=== PATIENT | female | born 1945 | race Caucasian/White ===

== ENCOUNTER 2017-12-06 08:04 | Inpatient (IN) | payer MEDICARE, OTHER ==
[2017-12-04 17:22] LABS: ADD MAN DIFF? NO
[2017-12-04 17:33] LABS: WHITE BLOOD COUNT 9.4 10^3/ul (4.8-10.8)
[2017-12-04 17:33] LABS: BASOPHILS % 0.1 % (0.0-2.0); EOSINOPHILS # 0.1 10^3/ul (0.0-0.5); EOSINOPHILS % 1.2 % (0.0-7.0); HEMATOCRIT 37.7 % (37.0-47.0); HEMOGLOBIN 12.6 g/dl (12.0-16.0); LYMPHOCYTES # 1.9 10^3/ul (0.8-2.9); LYMPHOCYTES % 20.1 % (15.0-51.0); MEAN CORPUSCULAR HEMOGLOBIN 33.2 pg (29.0-33.0); MEAN CORPUSCULAR HGB CONC 33.4 g/dl (32.0-37.0); MEAN CORPUSCULAR VOLUME 99.5 fl (82.0-101.0); MEAN PLATELET VOLUME 9.3 fl (7.4-10.4); MONOCYTE # 0.6 10^3/ul (0.3-0.9); MONOCYTES % 6.1 % (0.0-11.0); NEUTROPHIL # 6.7 10^3/ul (1.6-7.5); NEUTROPHILS % 72.1 % (39.0-77.0); PLATELET COUNT 286 10^3/UL (140-415); RED BLOOD COUNT 3.79 10^6/ul (4.20-5.40); RED CELL DISTRIBUTION WIDTH 12.1 % (11.5-14.5)
[2017-12-04 17:43] LABS: ADD UMIC YES; UR ASCORBIC ACID NEGATIVE (NEGATIVE); UR BILIRUBIN (Dip) NEGATIVE (NEGATIVE); UR BLOOD (Dip) NEGATIVE (NEGATIVE); UR CLARITY CLEAR (CLEAR); UR COLOR YELLOW (YELLOW); UR GLUCOSE (Dip) NEGATIVE (NEGATIVE); UR KETONES (Dip) NEGATIVE (NEGATIVE); UR LEUKOCYTE ESTERASE (Dip) TRACE Leu/ul (NEGATIVE); UR MUCUS FEW /HPF (NONE SEEN); UR NITRITE (Dip) NEGATIVE (NEGATIVE); UR RBC 1 /HPF (0-5); UR SPECIFIC GRAVITY (Dip) 1.017 (1.003-1.030); UR TOTAL PROTEIN (Dip) NEGATIVE (NEGATIVE); UR UROBILINOGEN (Dip) NEGATIVE (NEGATIVE); UR WBC 5 /HPF (0-5)
[2017-12-04 18:07] LABS: INR 1.08; PARTIAL THROMBOPLASTIN TIME 28.8 Sec (25.0-35.0); PROTIME 14.1 Sec (11.9-14.9); PT RATIO 1.1
[2017-12-04 18:20] LABS: ANION GAP 13 (8-16); BLOOD UREA NITROGEN 14 mg/dl (7-20); CARBON DIOXIDE 27 mmol/L (21-31); CHLORIDE 108 mmol/L (97-110); GLUCOSE 105 mg/dl (70-220); POTASSIUM 4.2 mmol/L (3.5-5.1); SODIUM 144 mmol/L (135-144)
[~2017-12-06 08:04] MED LIST: SOD CHLORIDE 0.9% 100 ML, TRANEXAMIC ACID 3,000 MG IRR
[2017-12-06] MEDS: GABAPENTIN 300 MG CAP PO ×2 (09:09→20:44)
[2017-12-06] MEDS: DEXAMETHASONE 1 MG TAB PO (09:09)
[2017-12-06] MEDS: traMADol 50 MG TAB PO (09:10)
[2017-12-06] MEDS ORDERED: POLYMYXIN/BACITRACIN 1L IRRIG (10:16)
[2017-12-06] MEDS ORDERED: MIDAZOLAM 1 MG/ML 2 ML INJ (11:46)
[2017-12-06] MEDS: TRANEXAMIC ACID 1,000 MG in DEXTROSE 5% 100 ML IVPB (11:46)
[2017-12-06] MEDS ORDERED: ROPIVACAINE 0.5 % 30 ML VIAL (11:47)
[2017-12-06] MEDS ORDERED: SUCCINYLCHOLINE CHLORIDE 100 MG/5 ML SYG IV (12:29)
[2017-12-06] MEDS ORDERED: LIDOCAINE 2% (SDV) 5 ML INJ (12:29)
[2017-12-06] MEDS ORDERED: ROCURONIUM 50 MG INJ (12:29)
[2017-12-06] MEDS ORDERED: CEFAZOLIN 1 GM INJ (12:30)
[2017-12-06] MEDS ORDERED: SUGAMMADEX SODIUM 200 MG/2 ML VIAL IV (12:30)
[2017-12-06] MEDS ORDERED: ONDANSETRON 4 MG INJ (12:36)
[2017-12-06] MEDS: THROMBIN 5000 UNIT VIAL (12:36)
[2017-12-06] MEDS: BUPIVACAINE 0.5%/EPI (SDV) 30 ML INJ (12:36)
[2017-12-06] MEDS: BUPIVACAINE 0.5% (SDV) 30 ML, morphine SULFATE (PF) 8 MG, EPINEPHrine 0.3 MG, KETOROLAC... IRR (12:36)
[2017-12-06] MEDS: CA CHLORIDE 10% 10 ML SYRINGE (12:36)
[2017-12-06] MEDS ORDERED: DIPHENHYDRAMINE 50 MG INJ IV ×2 (13:00)
[2017-12-06] MEDS ORDERED: ZOLPIDEM 5 MG TAB PO (13:00)
[2017-12-06] MEDS: CEFAZOLIN 1 GM/50 ML (PMX) 50 ML IVPB ×2 (13:00→20:44)
[2017-12-06] MEDS ORDERED: MEPERIDINE 25 MG INJ IV (13:00)
[2017-12-06] MEDS ORDERED: MAGNESIUM HYDROXIDE 30ML CUP PO (13:00)
[2017-12-06] MEDS ORDERED: HYDROmorphONE (0.2 MG/ML) 10ML SYG IV ×3 (13:00)
[2017-12-06] MEDS ORDERED: morphine 4 MG/ML VIAL IV (13:00)
[2017-12-06] MEDS ORDERED: METOCLOPRAMIDE 10 MG INJ IV (13:00)
[2017-12-06] MEDS ORDERED: KETOROLAC 15 MG INJ IV (13:00)
[2017-12-06] MEDS ORDERED: hydrALAzine 20 MG INJ IV (13:00)
[2017-12-06] MEDS ORDERED: FENTAnyl 50 MCG/ML VIAL IV ×2 (13:00)
[2017-12-06] MEDS ORDERED: LABETALOL HCL 20MG INJ IV (13:00)
[2017-12-06] MEDS ORDERED: ONDANSETRON 4 MG INJ IV ×2 (13:00)
[2017-12-06] MEDS: CEFAZOLIN 2 GM/50 ML (PMX) 50 ML IVPB (14:12)
[2017-12-06] MEDS: TRANEXAMIC ACID 1,000 MG in DEXTROSE 5% 100 ML IV (14:12)
[2017-12-06] MEDS ORDERED: METOPROLOL 100 MG TAB (17:19)
[2017-12-06] MEDS: DEXAMETHASONE 2 MG TAB PO ×2 (17:20→23:15)
[2017-12-06] MEDS: METOPROLOL (XL) 100 MG TAB PO (17:34)
[2017-12-06] MEDS: SENNA/DOCUSATE NA (8.6MG/50MG) TAB PO (20:44)
[2017-12-06] MEDS: ATORVASTATIN 80 MG TAB PO (20:44)
[2017-12-06] MEDS: CARISOPRODOL 350 MG TAB PO (23:15)
[2017-12-06] MEDS: LORAZEPAM 0.5 MG TAB PO (23:15)
[2017-12-07] MEDS: CEFAZOLIN 1 GM/50 ML (PMX) 50 ML IVPB (05:32)
[2017-12-07] MEDS: DEXAMETHASONE 2 MG TAB PO (05:32)
[2017-12-07] MEDS: LEVOTHYROXINE 25 MCG TAB PO (06:04)
[2017-12-07] MEDS: OXYCODONE/ACETAMINOPHEN (5/325) TAB PO (06:33)
[2017-12-07] MEDS ORDERED: METOPROLOL (XL) 100 MG TAB PO (09:00)
[2017-12-07] MEDS: SERTRALINE 50 MG TAB PO (09:05)
[2017-12-07] MEDS: BUPROPION (XL) 150 MG TAB PO (09:05)
[2017-12-07] MEDS: SENNA/DOCUSATE NA (8.6MG/50MG) TAB PO (09:05)
[2017-12-07] MEDS: METOPROLOL (XL) 100 MG TAB PO (09:06)
[2017-12-07] MEDS: morphine 2 MG INJ IV ×2 (09:09→11:23)
[2017-12-07] MEDS: ASPIRIN 81 MG TAB PO (09:09)
== END 2017-12-07 12:35 | disposition home or self-care (01) | DRG 483 ==
LOC: REC 08:04 → MS1 14:56
PROC: 0RRK00Z Replacement of Left Shoulder Joint with Reverse Ball and Socket Synthetic Substitute, Open Approach (ICD-10-PCS; principal; 2017-12-06 11:30)
PROC: 0RPK0JZ Removal of Synthetic Substitute from Left Shoulder Joint, Open Approach (ICD-10-PCS; 2017-12-06 11:30)
DX: T84.098A Other mechanical complication of other internal joint prosthesis, initial encounter (principal); Z96.612 Presence of left artificial shoulder joint
CPT/HCPCS: 71045; 73030; 80048; 81001; 85025; 85610; 85730; 86999; 87070; 87075; 87102; 87116; 88300; 93005; 97110; 97165; 97535